=== PATIENT | female | born 1950 | race Caucasian/White ===

== ENCOUNTER → 2016-11-18 | Outpatient (CLI) | payer OTHER ==
[~2016-11-18] MED LIST: ACET-1256 PO; ASPI81TA28 PO; CALC500C70 PO; LISI20TA55 PO; MAGN400T6 PO; SIMV10TA2 PO; TRAM-10 PO; ZNTT/150 PO
--- NOTE | 2016-11-18 10:02 | DIAGNOSTIC IMAGING REPORT ---
TWO VIEW CHEST CLINICAL HISTORY: Status post left paravertebral nerve block. FINDINGS: PA and lateral chest radiographs are obtained. No prior studies are available for comparison at the time of dictation. The cardiomediastinal silhouette is unremarkable. There is mild atherosclerotic calcification of the thoracic aorta. Nonspecific interstitial thickening is noted. No airspace consolidation or pleural effusion is seen. There is no pneumothorax. The skeletal structures are osteopenic. Degenerative change and scoliosis are noted throughout the thoracic spine. Spinal simulator leads project over the midthoracic region. IMPRESSION: 1. No pneumothorax is identified post procedure. 2. The lungs are clear. Electronically signed by: Dimas Cruz M.D. 11/18/2016 10:00 AM Dictated Date/Time: 11/18/2016 9:59 AM
== END | disposition home or self-care (01) ==
LOC: C.PAIN 09:40
PROVIDERS: ATTEND Anesthesiology
DX: B02.29 Other postherpetic nervous system involvement (principal); G57.93 Unspecified mononeuropathy of bilateral lower limbs; M19.90 Unspecified osteoarthritis, unspecified site; K21.9 Gastro-esophageal reflux disease without esophagitis; E78.5 Hyperlipidemia, unspecified; I10 Essential (primary) hypertension; Z90.89 Acquired absence of other organs; Z79.82 Long term (current) use of aspirin; G58.0 Intercostal neuropathy

== ENCOUNTER → 2017-01-11 | Outpatient (CLI) | payer OTHER ==
--- NOTE | 2017-01-11 11:36 | DIAGNOSTIC IMAGING REPORT ---
CHEST 1 VW FRONT-NOT PORTABLE CLINICAL HISTORY: POST PROCEDURE, R/O PNEUMOTHORAX COMPARISON STUDY: Chest radiograph November 18, 2016. FINDINGS: No pneumothorax is present. Lungs are clear. Cardiac size is normal. Mediastinal contours are normal. Spinal stimulator appears unchanged in position. IMPRESSION: No acute cardiopulmonary findings. No pneumothorax. Electronically signed by: Denny Duran M.D. 01/11/2017 11:34 AM Dictated Date/Time: 01/11/2017 11:33 AM
--- NOTE | 2017-01-11 11:42 | DIAGNOSTIC IMAGING REPORT ---
ADDENDUM Addendum: The inferior electrode terminates at the lower T7 level and is located within the posterior aspect of the canal. The more superiorly located electrode terminates at the upper T6 level and is located within the anterior aspect of the canal. Electronically signed by: Denny Duran M.D. 01/11/2017 11:57 AM Dictated Date/Time: 01/11/2017 11:55 AM ORIGINAL REPORT THORACOLUMBAR SPINE 2 VIEWS CLINICAL HISTORY: POST PROCEDURE, R/O PNEUMOTHORAX COMPARISON STUDY: Chest radiograph November 18, 2016. FINDINGS: Right lower quadrant battery pack is noted. Intracanalicular electrodes are noted. These enter the canal at the T12-L1 level. One terminates at the lower T7 level while the other terminates at the upper T6 level. IMPRESSION: 1. Intracanalicular electrodes, as described above. 2. Grade I anterolisthesis of L4 and L5. 3. No compression fracture. Electronically signed by: Denny Duran M.D. 01/11/2017 11:41 AM Dictated Date/Time: 01/11/2017 11:37 AM
== END | disposition home or self-care (01) ==
LOC: C.RADBC 11:11
PROVIDERS: ATTEND Anesthesiology
DX: G58.0 Intercostal neuropathy (principal); Z98.890 Other specified postprocedural states; B02.29 Other postherpetic nervous system involvement; G57.93 Unspecified mononeuropathy of bilateral lower limbs; Z79.82 Long term (current) use of aspirin; M19.90 Unspecified osteoarthritis, unspecified site; K21.9 Gastro-esophageal reflux disease without esophagitis; E78.5 Hyperlipidemia, unspecified; I10 Essential (primary) hypertension; Z90.89 Acquired absence of other organs; G62.9 Polyneuropathy, unspecified